=== PATIENT | female | born 1970 | race Caucasian/White ===

== ENCOUNTER 2018-07-05 12:28 | Emergency (ER) | payer OTHER ==
[2018-07-05 12:49] VITALS: BP 137/77; PULSE 75; TEMP 98.5; BMI 24.7
[2018-07-05] MEDS ORDERED: IBUPROFEN 600 MG TABLET (FP) PO ONE ×2 (13:58→14:00)
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
== END 2018-07-05 14:17 | disposition home or self-care (01) ==
LOC: JERFT 12:28
DX: S61.421A Laceration with foreign body of right hand, initial encounter (principal); S60.511A Abrasion of right hand, initial encounter; S80.02XA Contusion of left knee, initial encounter; S80.01XA Contusion of right knee, initial encounter; V74.5XXA Driver of bus injured in collision with heavy transport vehicle or bus in traffic accident, initial encounter; W25.XXXA Contact with sharp glass, initial encounter; W45.8XXA Other foreign body or object entering through skin, initial encounter; Y93.89 Activity, other specified; Y92.414 Local residential or business street as the place of occurrence of the external cause; Y99.0 Civilian activity done for income or pay
CPT/HCPCS: 99281-25